=== PATIENT | female | born 1955 | race Hispanic/Latino ===

== ENCOUNTER 2024-02-23 17:41 | Emergency (ER) | payer MEDICARE, OTHER ==
[~2024-02-23] VITALS: Ht 149.9 cm; Wt 73.0 kg
[2024-02-23 19:12] LABS: BASOPHILS # (AUTO) 0.01 K/uL (0.00-0.20); EOSINOPHILS % (AUTO) 10.4 % (0.0-8.0); IMMATURE GRANULOCYTE ABSOLUTE 0.03 K/uL (0-1); LYMPHOCYTES # (AUTO) 0.2 K/uL (1.0-4.8); MEAN CORPUSCULAR HEMOGLOBIN 28.7 pg (27.0-33.0); MEAN CORPUSCULAR VOLUME 86.8 fL (79-99); MONOCYTES # (AUTO) 0.2 K/uL (0.1-1.0); MONOCYTES % (AUTO) 17.7 % (3.0-13.0); NEUTROPHILS # (AUTO) 0.4 K/uL (1.8-7.7); NEUTROPHILS % (AUTO) 42.8 % (40.0-77.0); PLATELET COUNT (AUTO) 151 K/uL (130-400); RED BLOOD CELL COUNT(AUTO) 2.65 MIL/uL (4.00-5.50); RED CELL DISTRIBUTION WIDTH 13.9 % (11.0-15.5)
[2024-02-23 19:18] LABS: INR 0.95 (0.85-1.15); PROTHROMBIN TIME 11.3 SEC (9.6-11.6)
[2024-02-23 19:20] LABS: PARTIAL THROMBOPLASTIN TIME 27.8 SEC (26.3-35.5)
[2024-02-23 19:40] LABS: CREATININE 1.7 mg/dL (0.5-1.0); POTASSIUM 4.2 mmol/L (3.5-5.1)
[2024-02-23 19:44] LABS: ALBUMIN 2.9 g/dL (3.5-5.0); BILIRUBIN,TOTAL 0.3 mg/dL (0.2-1.0); TOTAL PROTEIN, SERUM 6.3 g/dL (6.0-8.3)
[2024-02-23 20:15] LABS: APPEARANCE,URINE CLEAR (CLEAR); BILIRUBIN,URINE NEGATIVE (NEGATIVE); COLOR,URINE LIGHT-YELLOW (YELLOW); GLUCOSE, URINE (UA) NEGATIVE (NEGATIVE); KETONES,URINE NEGATIVE (NEGATIVE); LEUKOCYTE ESTERASE ,URINE 75 Leu/uL (NEGATIVE); NITRATE,URINE NEGATIVE (NEGATIVE); OCCULT BLOOD,URINE NEGATIVE (NEGATIVE); PROTEIN,URINE NEGATIVE (NEGATIVE); UROBILINOGEN,URINE 0.2 mg/dL (0.2-1.0)
[2024-02-23 20:29] LABS: ADD UA MICROSCOPIC YES
[2024-02-23 20:45] LABS: BACTERIA,URINE RARE /HPF (None Seen); MUCUS,URINE RARE LPF (None Seen); RBC,URINE 0-1 /HPF (0-1)
[2024-02-23 20:52] LABS: BAND NEUTROPHILS % (MANUAL) 8 % (0-2); EOSINOPHILS % (MANUAL) 5 % (1-6); LYMPHOCYTES % (MANUAL) 34 % (22-44); MONOCYTES % (MANUAL) 6 % (2-9); SEGMENTED NEUTROPHILS % 47 % (40-70); TOTAL CELLS COUNTED 100
[2024-02-23 20:53] LABS: MAN.DIFF COMMENT-IMPRESSION MANUAL DIFFERENTIAL; PLATELET MORPHOLOGY COMMENT A2; WBC MORPHOLOGY CONSISTENT W/DIFF
[2024-02-23] MEDS: TBO-FILGRASTIM 480 MCG/0.8 ML ML SQ SCH (20:58)
[2024-02-23 21:19] VITALS: BP 135/76; PULSE 70; RESP 18; O2SAT 100
== END 2024-02-23 21:24 | disposition home or self-care (01) ==
LOC: EDH 17:41
DX: D72.819 Decreased white blood cell count, unspecified (principal); I12.9 Hypertensive chronic kidney disease with stage 1 through stage 4 chronic kidney disease, or unspecified chronic kidney disease; N18.9 Chronic kidney disease, unspecified; D63.1 Anemia in chronic kidney disease; I10 Essential (primary) hypertension; Z90.89 Acquired absence of other organs; Z90.49 Acquired absence of other specified parts of digestive tract; Z94.4 Liver transplant status
CPT/HCPCS: 99283; 82270; 80053; 83690; 85025; 85610; 85730; 86850; 86900; 86901; 87077; 87088; 87186; 81001; 36415; J1447

== ENCOUNTER 2024-08-05 14:00 | Emergency (ER) | payer MEDICARE ==
[~2024-08-05] VITALS: Ht 149.9 cm; Wt 77.1 kg
[2024-08-05 14:44] LABS: BASOPHILS # (AUTO) 0.04 K/uL (0.00-0.20); BASOPHILS % (AUTO) 1.3 % (0.0-5.0); EOSINOPHILS % (AUTO) 6.4 % (0.0-8.0); HEMATOCRIT 29.1 % (36-48); IMMATURE GRANULOCYTE ABSOLUTE 0.01 K/uL (0-1); LYMPHOCYTES # (AUTO) 0.9 K/uL (1.0-4.8); LYMPHOCYTES % (AUTO) 29.6 % (21.0-51.0); MEAN CORPUSCULAR HEMOGLOBIN 31.5 pg (27.0-33.0); MEAN CORPUSCULAR HGB CONC 34.4 g/dL (32.0-36.0); MEAN CORPUSCULAR VOLUME 91.8 fL (79-99); MONOCYTES # (AUTO) 0.3 K/uL (0.1-1.0); MONOCYTES % (AUTO) 10.9 % (3.0-13.0); NEUTROPHILS # (AUTO) 1.6 K/uL (1.8-7.7); NEUTROPHILS % (AUTO) 51.5 % (40.0-77.0); PLATELET COUNT (AUTO) 139 K/uL (130-400); RED BLOOD CELL COUNT(AUTO) 3.17 MIL/uL (4.00-5.50); RED CELL DISTRIBUTION WIDTH 14.2 % (11.0-15.5); WHITE BLOOD COUNT (AUTO) 3.1 K/uL (4.8-10.8)
[2024-08-05 14:53] LABS: CREATININE 1.8 mg/dL (0.5-1.0); POTASSIUM 4.5 mmol/L (3.5-5.1)
[2024-08-05 14:56] LABS: MAGNESIUM 1.9 mg/dL (1.80-2.40); PHOSPHORUS 4.6 mg/dL (2.5-4.9)
--- NOTE | 2024-08-05 15:12 | ERN ---
General Chief Complaint: Abnormal Labs Stated Complaint: ABNORMAL LABS MAG 0.3 Time Seen by MD: 14:02 Time Seen by Midlevel: 14:02 Source: patient History of Present Illness Initial Comments Patient is a 60-year-old female with a past medical history of chronic kidney disease and liver transplant who presents to the ER for evaluation of abnormal labs. Patient had routine blood work performed four days ago. Today she was called and was told she had a magnesium level of 0.3 and was advised to report to the ER. On arrival patient is asymptomatic. She has no complaints at this time and specifically denies any chest pain, difficulty breathing, or any other symptoms at this time. She does report having a history of CKD and is followed by a clinical data abstractor who is currently managing that. She has a team in [place] manages her liver transplant. Allergies: Coded Allergies: No Known Drug Allergies (Unverified Allergy, Unknown, 02/23/24) Past Medical History Past Medical History: Diabetes-Type II, High Cholesterol, Hypertension, Immunosuppression, Liver Disease Medical History Other: LIVER TRANSPLANT Past Surgical History: Appendectomy, Cholecystectomy, Other, BTL, Surgical History Other: LIVER TRANSPLANT, Female( History) History: Not Applicable ROS Dictation CONSTITUTIONAL: Negative except for HPI HEAD/FACE: Negative except for HPI EENT: Negative except for HPI RESPIRATORY: Negative except for HPI GASTROINTESTINAL/ABDOMINAL: Negative except for HPI GENITOURINARY: Negative except for HPI MUSCULOSKELETAL: Negative except for HPI INTEGUMENTARY: Negative except for HPI NEUROLOGICAL/PSYCH: Negative except for HPI HEMATOLOGIC/LYMPHATIC: Negative except for HPI All Systems Negative, Except as noted above. 13 point review of systems assessed and all negative except for above. Physical Exam Physical Exam Dictation Vital Signs reviewed General Appearance: Alert, oriented x 3, no acute distress, well developed, nourished. Head and Face: non-traumatic. Eyes: PERRL, pink conjunctivas, eyelid no trauma, anterior chamber with arcus senilis. Ears: Pinnas intact and no signs of trauma or erythema ear canals clear and no discharge TM no erythema Nose: No discharge, no bleeding. Oropharynx: Mouth normal, tongue pink, pharynx clear,no erythema, tonsils no exudates, no abscesses noted, mucous membrane moist Neck: Supple, non-tender, no thyromegaly, no masses, no JVD, no bruits Breast:Deferred Chest:No tenderness, no crepitus, no paradoxical movement, no retractions Lungs:Clear, well-ventilated, symmetric, no rales, no wheezing, no rhonchi, no stridor, good breath sounds bilaterally Heart: Regular rate, regular rhythm, no murmur, no gallops Vascular: no peripheral edema, Abdomen: Soft, positive bowel sounds, nondistended, no guarding, nontender, no rebound, no masses no hepatomegaly, no splenomegaly, no Hernandez's sign, no hernias. Rectal: Deferred Genital: Deferred Neurological: Normal speech, motor function intact, sensory function intact Musculoskeletal: Neck nontender, full range of motion, back nontender, full range of motion, Extremities: nontender, full range of motion Skin: Color pink, dry, no turgor, no rash, no lacerations, no abrasions, no contusions. Lymphatic: Deferred Results Laboratory and Microbiology Lab and Micro Result Laboratory Tests Test 08/05/24 14:29 White Blood Count 3.1 K/uL (4.8-10.8) L Red Blood Count 3.17 MIL/uL (4.00-5.50) L Hemoglobin 10.0 g/dL (12.0-16.0) L Hematocrit 29.1 % (36-48) L Mean Corpuscular Volume 91.8 fL (79-99) Mean Corpuscular Hemoglobin 31.5 pg (27.0-33.0) Mean Corpuscular Hemoglobin Concent 34.4 g/dL (32.0-36.0) Red Cell Distribution Width 14.2 % (11.0-15.5) Platelet Count 139 K/uL (130-400) Mean Platelet Volume 8.5 fL (7.5-10.5) Immature Granulocyte % (Auto) 0.3 % (0-1) Neutrophils (%) (Auto) 51.5 % (40.0-77.0) Lymphocytes (%) (Auto) 29.6 % (21.0-51.0) Monocytes (%) (Auto) 10.9 % (3.0-13.0) Eosinophils (%) (Auto) 6.4 % (0.0-8.0) Basophils (%) (Auto) 1.3 % (0.0-5.0) Neutrophils # (Auto) 1.6 K/uL (1.8-7.7) L Lymphocytes # (Auto) 0.9 K/uL (1.0-4.8) L Monocytes # (Auto) 0.3 K/uL (0.1-1.0) Eosinophils # (Auto) 0.20 K/uL (0.00-0.70) Basophils # (Auto) 0.04 K/uL (0.00-0.20) Absolute Immature Granulocyte (auto 0.01 K/uL (0-1) Nucleated Red Blood Cells 0.0 % (0.0-0.19) Sodium Level 138 mmol/L (136-145) Potassium Level 4.5 mmol/L (3.5-5.1) Chloride Level 104 mmol/L (101-111) Carbon Dioxide Level 28 mmol/L (21-32) Blood Urea Nitrogen 43 mg/dL (7-18) H Creatinine 1.8 mg/dL (0.5-1.0) H Glomerular Filtration Rate Calc 30 mL/min (>90) Random Glucose 203 mg/dL (70-105) H Total Calcium 8.9 mg/dL (8.5-10.1) Phosphorus Level 4.6 mg/dL (2.5-4.9) Magnesium Level 1.90 mg/dL (1.80-2.40) Troponin I High Sensitivity 5 ng/L (4-50) Labs Reviewed?: Yes MDM MDM: Patient is a 60-year-old female with a past medical history of chronic kidney disease and liver transplant who presents to the ER for evaluation of abnormal labs. Patient had routine blood work performed four days ago. Today she was called and was told she had a magnesium level of 0.3 and was advised to report to the ER. On arrival patient is asymptomatic. She has no complaints at this time and specifically denies any chest pain, difficulty breathing, or any other symptoms at this time. She does report having a history of CKD and is followed by a clinical data abstractor who is currently managing that. She has a team in [place] manages her liver transplant. On physical examination patient is in no acute distress. Abdominal examination is reassuring. Her CBC shows chronic anemia with a hemoglobin of 10. Her chemistries are stable. There is some CKD however patient is aware of this in his actively managing this outpatient. Her magnesium level was normal. EKG does not show any ST elevations. Patient will be discharged home Differential diagnosis: Abnormal labs, wellness examination, electrolyte abnormality, There are no social concerns with this patient. Prescription drug management Prescriptions will include: None Medical management and examination interpretation discussions were had by me with other qualified healthcare professionals as indicated for the patient's care. ED Course Orders Procedure Category Date Status Time 12 Lead Ekg Tracing- EKG 08/05/24 Logged Technical 14:07 12 Lead Ekg Tracing- EKG 08/05/24 Logged Technical 14:19 Cbc With Differential LAB 08/05/24 Complete 14:19 Basic Metabolic Panel LAB 08/05/24 Complete 14:19 Magnesium LAB 08/05/24 Complete 14:19 Phosphorus LAB 08/05/24 Complete 14:19 Troponin I High LAB 08/05/24 Complete Sensitivity 14:19 Vital Signs Date Time Temp Pulse Resp B/P (MAP) Pulse Ox O2 Delivery O2 Flow Rate FiO2 08/05/24 15:24 98.1 79 18 134/90 99 Room Air* 0 21 08/05/24 14:14 78 18 151/81 99 Room Air* 0 21 08/05/24 14:01 98.1 64 16 151/81 99 Room Air 0 DX & DISP Disposition: Discharge Departure Impression: Primary Impression: Wellness examination Condition: Stable Additional Instructions: Your bloodwork today is stable. Your magnesium level was normal. Please follow up with your doctor as scheduled. Return to the ER for any new or worsening symptoms. Referrals: ARIAN MARCUM MD (PCP) Time of Disposition: 15:12 I have reviewed the case, and I agree with, Diagnosis and Plan I performed the substantive portion of the visit. I have reviewed and eddy merrill made and approve the management plan that is documented in the note by myself or the LUKAS. I acknowledge for responsibility for the patient's management plan. LIZZY CAMPOS Aug 05, 2024 15:12
[2024-08-05 15:24] VITALS: BP 134/90; PULSE 79; RESP 18; TEMP 98.1; O2SAT 99
--- NOTE | 2024-08-06 07:02 | EKG ---
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
== END 2024-08-05 15:24 | disposition home or self-care (01) ==
LOC: EDH 14:00
DX: I12.9 Hypertensive chronic kidney disease with stage 1 through stage 4 chronic kidney disease, or unspecified chronic kidney disease (principal); E11.22 Type 2 diabetes mellitus with diabetic chronic kidney disease; N18.9 Chronic kidney disease, unspecified; E78.00 Pure hypercholesterolemia, unspecified; Z90.49 Acquired absence of other specified parts of digestive tract; Z94.4 Liver transplant status; Z98.51 Tubal ligation status
CPT/HCPCS: 36415; 80048; 83735; 84100; 84484; 85025; 93005; 99284

== ENCOUNTER 2025-04-09 14:58 | Emergency (ER) | payer MEDICARE ==
[~2025-04-09] VITALS: Ht 152.4 cm; Wt 98.0 kg
--- NOTE | 2025-04-09 15:47 | ERN ---
General Chief Complaint: Generalized Body Aches Stated Complaint: BODY ACHES, POS STREP THROAT Time Seen by MD: 15:00 Source: patient History of Present Illness Initial Comments Ms. Avalos is a 69 year old female with PMH of Liver transplant, came to ER with generalized body aches, SOB, pain with inspiration, and nausea for the last one week. Pt states she has generalized body aches but hurts mostly on the back of left neck. Pt states she had a positive strep throat last week and used Amoxi- Clav for 3 days. Since then she developed severe itching all over her body prompting her to stop it. Patient continues to have body aches but denies fever, chills, cough, sore throat, UTI. Allergies: Coded Allergies: No Known Drug Allergies (Unverified Allergy, Unknown, 02/23/24) Home Meds Active Scripts Azithromycin (Azithromycin) 250 Mg Tablet, 1 TAB PO AD for 5 Days, #6 TAB 0 Refills 2 the first day followed by 1 for days 2-5 Prov:QUENTIN BRUNO DO 04/09/25 Past Medical History Past Medical History: Diabetes-Type II, High Cholesterol, Hypertension, Immunosuppression, Liver Disease Medical History Other: LIVER TRANSPLANT Past Surgical History: Appendectomy, Cholecystectomy, Other, BTL, Surgical History Other: LIVER TRANSPLANT, Female( History) History: Not Applicable ROS Dictation CONSTITUTIONAL: No chills, no fever, no weakness, no diaphoresis, no malaise. HEAD/FACE: No signs of trauma. EENT: No eye pain, no blurred vision, no tearing, no double vision, no ear pa in, no ear discharge, no nose pain, no nasal congestion, no throat pain, no throat swelling, no mouth pain. RESPIRATORY: No cough, SOB, pain with inspiration, no orthopnea, no PND, no wheezing. CARDIOVASCULAR: No chest pain, no edema, no palpitations, no syncope. GASTROINTESTINAL/ABDOMINAL: No abdominal pain, no constipation, no diarrhea, no nausea, no vomiting. GENITOURINARY: No abnormal discharge, no dysuria, no frequent urination, no hematuria. No complaints of pain in the genitals. MUSCULOSKELETAL: No back pain, no gout, no joint pain, no joint swelling, no m uscle pain, no muscle stiffness, no neck pain. INTEGUMENTARY: No change in color, no change in hair/nails, no dryness, no lesion, no lumps, no rash. NEUROLOGICAL/PSYCH: No anxiety, not depressed, no emotional problem, no headache, no numbness, no pre-existing deficit, no history of seizures, no tremors, no weakness. HEMATOLOGIC/LYMPHATIC: Not anemic, no history of blood clots, no apparent bleeding, no bruising, glands not swollen. All Systems Negative, Except as Noted. Physical Exam Physical Exam Dictation VITAL SIGNS: Reviewed. GENERAL APPEARANCE: Alert, oriented x3 HEAD AND FACE: Non-traumatic. EYES: PERRL, pink conjunctivas, eyelid no trauma, anterior chamber clear. EARS: Pinnas intact and no signs of trauma or erythema. Ear canals clear and no discharge. TMs no erythema. NOSE: No discharge, no bleeding. OROPHARYNX: Mouth normal, teeth no caries, tongue pink. Pharynx clear, no erythema. Tonsils no exudates, no abscesses noted. Mucous membrane moist. NECK: Supple, non-tender, no thyromegaly, no masses, no JVD, no bruits. BREAST: Deferred. CHEST: No tenderness, no crepitus, no paradoxical movement, no retractions. LUNGS: Clear, well-ventilated, symmetric, no rales, no wheezing, no rhonchi, no stridor, good breath sounds bilaterally. HEART: Regular rate, regular rhythm, no murmur, no gallops. VASCULAR: No peripheral edema. ABDOMEN: Soft, positive bowel sounds, nondistended, no guarding, nontender, no rebound, no masses no hepatomegaly, no splenomegaly, no Hernandez's sign, no hernias. RECTAL: Deferred. GENITAL: Deferred. NEUROLOGICAL: Normal speech, gross motor function intact, gross sensory function intact. MUSCULOSKELETAL: Neck nontender, full range of motion, back nontender, full range of motion. EXTREMITIES: Nontender, full range of motion. SKIN: Color pink, dry, no turgor, no rash, no lacerations, no abrasions, no contusions. LYMPHATICS: Deferred. Results Laboratory and Microbiology Lab and Micro Result Laboratory Tests Test 04/09/25 15:55 04/09/25 18:47 04/09/25 19:17 White Blood Count 7.6 K/uL (4.8-10.8) Red Blood Count 3.01 MIL/uL (4.00-5.50) L Hemoglobin 9.4 g/dL (12.0-16.0) L Hematocrit 27.4 % (36-48) L Mean Corpuscular Volume 91.0 fL (79-99) Mean Corpuscular Hemoglobin 31.2 pg (27.0-33.0) Mean Corpuscular Hemoglobin Concent 34.3 g/dL (32.0-36.0) Red Cell Distribution Width 12.6 % (11.0-15.5) Platelet Count 221 K/uL (130-400) Mean Platelet Volume 8.5 fL (7.5-10.5) Immature Granulocyte % (Auto) 0.8 % (0-1) Neutrophils (%) (Auto) 76.1 % (40.0-77.0) Lymphocytes (%) (Auto) 12.4 % (21.0-51.0) L Monocytes (%) (Auto) 7.8 % (3.0-13.0) Eosinophils (%) (Auto) 2.6 % (0.0-8.0) Basophils (%) (Auto) 0.3 % (0.0-5.0) Neutrophils # (Auto) 5.8 K/uL (1.8-7.7) Lymphocytes # (Auto) 0.9 K/uL (1.0-4.8) L Monocytes # (Auto) 0.6 K/uL (0.1-1.0) Eosinophils # (Auto) 0.20 K/uL (0.00-0.70) Basophils # (Auto) 0.02 K/uL (0.00-0.20) Absolute Immature Granulocyte (auto 0.06 K/uL (0-1) Nucleated Red Blood Cells 0.0 % (0.0-0.19) Erythrocyte Sedimentation Rate 139 MM/HR (0-30) H Sodium Level 136 mmol/L (136-145) Potassium Level 3.8 mmol/L (3.5-5.1) Chloride Level 99 mmol/L (101-111) L Carbon Dioxide Level 32 mmol/L (21-32) Blood Urea Nitrogen 31 mg/dL (7-18) H Creatinine 1.7 mg/dL (0.5-1.0) H Glomerular Filtration Rate Calc 32 mL/min (>90) Random Glucose 127 mg/dL (70-105) H Lactic Acid Level 0.9 mmol/L (0.8-2.5) Total Calcium 8.4 mg/dL (8.5-10.1) L Troponin I High Sensitivity 6 ng/L (4-50) C-Reactive Protein, Quantitative 103.90 mg/L (0.5-3.0) H Procalcitonin 0.20 ng/mL (0.05-0.5) SARS-CoV-2 Antigen (Rapid) PRESUMPTIVE NEGATIVE Urine Color COLORLESS (YELLOW) Urine Appearance CLEAR (CLEAR) Urine pH 6.5 (5.0-8.0) Urine Specific [place]ancock 1.004 (1.001-1.031) Urine Protein NEGATIVE mg/dL (NEGATIVE) Urine Glucose (UA) NEGATIVE mg/dL (NEGATIVE) Urine Ketones NEGATIVE mg/dL (NEGATIVE) Urine Occult Blood NEGATIVE (NEGATIVE) Urine Nitrate NEGATIVE (NEGATIVE) Urine Bilirubin NEGATIVE mg/dL (NEGATIVE) Urine Urobilinogen 0.2 mg/dL (0.2-1.0) Urine Leukocyte Esterase NEGATIVE Ronald/uL MDM CC: Body aches, nausea, upper back and neck discomfort/soreness Comorbidities include immunosuppression on CellCept and Prograf due to 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 Abdomen soft nontender nondistended. Nontoxic in appearance. Unremarkable clinical exam. Labs (independently ordered and interpreted by me): Hemoglobin 9.4 no leukocytosis no shift. Chemistry shows creatinine 1.7 BUN of 31, baseline for patient based on previous labs. Lactic acid is normal. Troponin is normal. Procalcitonin is normal. CRP and sed rate are both elevated. Urinalysis is normal. COVID negative. Chest x-ray (independently ordered and interpreted by me): Borderline cardiomegaly, no vascular congestion, no obvious infiltrates or focal abnormality, possibly a very small left pleural effusion. Based on the presentation, patient may have a viral syndrome. She has been soreness in her upper back I have very low suspicion for ACS cardiac pathology or vascular pathology. The patient did have a distant history of pseudogout which did traveled throughout her joints. I do not think this is present in her spine at this time. She has full range of motion that has not appear to be bony spinal tenderness. Symptoms are unclear, but she has never white count in her vital signs are stable. She does have some elevated inflammatory markers. Treatment in the ED included 1 L lactated Ringer's, IV dexamethasone, IV Toradol, and a dose of azithromycin. I did consider and discuss an observation stay here in the hospital, but since the patient has a immunosuppressed in his no obvious necessity for admission at this time, patient prefers to go home. She has a very good follow up as an outpatient. We will prescribe her azithromycin. She has Tylenol with codeine at home to take for discomfort. She will follow up with the primary doctor within 1-2 days. She will return to the emergency department as needed. ED Course Orders Procedure Category Date Status Time Cbc With Differential LAB 04/09/25 Complete 15:28 Basic Metabolic Panel LAB 04/09/25 Complete 15:28 Urinalysis Profile LAB 04/09/25 Complete 15:28 Crp Quantitative LAB 04/09/25 Complete 15:28 Procalcitonin LAB 04/09/25 Complete 15:28 Erythrocyte LAB 04/09/25 Complete Sedimentation Rate 15:28 Lactated Ringers PHA 04/09/25 Complete 1000ml (Lactated 15:30 Troponin I High LAB 04/09/25 Complete Sensitivity 15:28 Chest 1vw RAD 04/09/25 Resulted 15:28 Blood Cult EKATERINA 04/09/25 In Process 15:39 Lactic Acid LAB 04/09/25 Complete 15:39 Covid19 (Sars Antigen LAB 04/09/25 Complete Rapid) 17:50 Dexamethasone 4mg/Ml PHA 04/09/25 Complete 1ml Vial (Dexametha 20:30 Ketorolac PHA 04/09/25 Complete Tromethamine 15mg/Ml 20:30 Azithromycin PHA 04/09/25 Complete (Zithromax) 20:30 Current Medications Medications (Trade) Dose Ordered Sig/Sloan Route PRN Reason Start Time Stop Time Status Last Admin Dose Admin Azithromycin (Zithromax) 500 mg ONCE ONCE PO 04/09/25 20:30 04/09/25 20:31 DC 04/09/25 20:26 Dexamethasone Sodium Phosphate (dexaMETHasone 4MG/ML 1ML VIAL) 6 mg ONCE ONCE IVP 04/09/25 20:30 04/09/25 20:31 DC 04/09/25 20:26 Ketorolac Tromethamine (toRADol) 15 mg ONCE ONCE IV 04/09/25 20:30 04/09/25 20:31 DC 04/09/25 20:26 Lactated Ringer's 1,000 ml @ 125 mls/hr ONCE ONCE IV 04/09/25 15:30 04/09/25 21:08 DC 04/09/25 16:00 Vital Signs Date Time Temp Pulse Resp B/P (MAP) Pulse Ox O2 Delivery O2 Flow Rate FiO2 04/09/25 21:00 98.2 82 18 132/70 98 Room Air* 0 21 04/09/25 19:19 98.4 89 18 119/77 98 Room Air* 0 21 04/09/25 14:59 99.0 87 16 151/81 97 Room Air DX & DISP Disposition: Discharge Departure Impression: Primary Impression: Neck pain Additional Impressions: Viral syndrome, CKD (chronic kidney disease), Immunosuppressed status Condition: Stable Scripts Azithromycin (Azithromycin) 250 Mg Tablet 1 TAB PO AD for 5 Days, #6 TAB 0 Refills 2 the first day followed by 1 for days 2-5 Prov: QUENTIN BRUNO DO 04/09/25 Additional Instructions: As we discussed, your symptoms may be related to a viral syndrome versus a pseudo gout/joint dysfunction. You received a dose of steroids (dexamethasone) here in the ER. This is an anti-inflammatory medicine that lasts about 48 hours if your symptoms. You received a dose of azithromycin, which is an antibiotic. I have prescribed azithromycin. Take as prescribed. You can continue taking your Tylenol with codeine as needed for pain. Your blood work (CBC with differential, metabolic panel, ESR, CRP) shows a normal white blood cell count, mild anemia (hemoglobin 9.4), mildly decreased k idney function (creatinine 1.7, BUN 31, GFR 32), and signs of generalized inflammation (CRP 103, ESR 139). As we discussed, I recommend that you follow up with your primary doctor in 72 hours for re-evaluation. Please return to the emergency department sooner. Referrals: ARIAN MARCUM MD (PCP) I performed a substantive portion of the visit. I have reviewed and personally made and approve the management plan that is documented in the notes by myself with LUKAS/resident. I acknowledged full responsibility for the patient's management plan. FORREST HUMMEL MD Apr 09, 2025 15:47 QUENTIN BRUNO DO Apr 09, 2025 20:14
[2025-04-09] MEDS: LACTATED RINGERS 1000ML 1,000 ML IV ONE (16:00)
[2025-04-09 16:08] LABS: IMMATURE GRANULOCYTE ABSOLUTE 0.06 K/uL (0-1); NUCLEATED RED BLOOD CELLS 0.0 % (0.0-0.19); PLATELET COUNT (AUTO) 221 K/uL (130-400); RED BLOOD CELL COUNT(AUTO) 3.01 MIL/uL (4.00-5.50); RED CELL DISTRIBUTION WIDTH 12.6 % (11.0-15.5); WHITE BLOOD COUNT (AUTO) 7.6 K/uL (4.8-10.8)
[2025-04-09 16:18] LABS: CREATININE 1.7 mg/dL (0.5-1.0); GLOMERULAR FILTR. RATE CALC 32.0 mL/min (>90); GLUCOSE,RANDOM 127.0 mg/dL (70-105); SODIUM SERUM 136.0 mmol/L (136-145); UREA NITROGEN, BLOOD 31.0 mg/dL (7-18)
--- NOTE | 2025-04-09 16:40 | HMCIMG ---
EXAM: CR CHEST, 1 VIEW CLINICAL HISTORY: 69-year-old female with shortness of breath. COMPARISON: None provided TECHNIQUE: Single frontal radiograph of the chest was obtained. FINDINGS: Lines/Devices: None. Lungs: Radiographically clear. No consolidation or ground-glass opacities are observed. There is a small left pleural effusion. Mild cardiomegaly. The central airway and mediastinal contours are unremarkable. Bones and soft tissues: Unremarkable. IMPRESSION: 1. Mild cardiomegaly. 2. Small left pleural effusion. /[place]
[2025-04-09 17:13] LABS: ERYTHROCYTE SEDIMENTATION RATE 139 MM/HR (0-30)
[2025-04-09] MEDS ORDERED: AZIT250T9 PO (20:14)
[2025-04-09 20:21] LABS: APPEARANCE,URINE CLEAR (CLEAR); GLUCOSE, URINE (UA) NEGATIVE (NEGATIVE); LEUKOCYTE ESTERASE ,URINE NEGATIVE Leu/uL (NEGATIVE); NITRATE,URINE NEGATIVE (NEGATIVE); OCCULT BLOOD,URINE NEGATIVE (NEGATIVE)
[2025-04-09] MEDS: AZITHROMYCIN 250 MG TABLET PO ONE (20:26)
[2025-04-09 20:37] LABS: ADD UA MICROSCOPIC NO
[2025-04-09 21:00] VITALS: BP 132/70; PULSE 82; RESP 18; TEMP 98.2; O2SAT 98
== END 2025-04-09 21:07 | disposition home or self-care (01) ==
LOC: EDH 14:58
DX: M54.2 Cervicalgia (principal); B34.9 Viral infection, unspecified; I12.9 Hypertensive chronic kidney disease with stage 1 through stage 4 chronic kidney disease, or unspecified chronic kidney disease; E11.22 Type 2 diabetes mellitus with diabetic chronic kidney disease; N18.9 Chronic kidney disease, unspecified; D84.821 Immunodeficiency due to drugs; E78.00 Pure hypercholesterolemia, unspecified; Z79.624 Long term (current) use of inhibitors of nucleotide synthesis; Z90.49 Acquired absence of other specified parts of digestive tract; Z94.4 Liver transplant status; Z98.51 Tubal ligation status; Z20.822 Contact with and (suspected) exposure to COVID-19
CPT/HCPCS: 99284; 96374; 71045; 96361; 96375; 87426; 84484; 80048; 85025; 85651; 87040 ×2; 83605; 86140; 81003; 36415; 84145; J1885; J1100; J7120